=== PATIENT | female | born 1980 | race Hispanic/Latino ===

== ENCOUNTER → 2017-11-21 | Day surgery (SDC) | payer OTHER ==
[~2017-11-21] MED LIST: FENTANYL CITRATE/PF 100MCG/2 ML INJ ONE; HYOSCYAMINE SULFATE 0.5 MG/ML AMP ONE; LIDOCAINE HCL 2% LOCAL INJ 5 ML SDV VIAL INJ ONE; LINZESS PO; MIDAZOLAM HCL 2 MG/2 ML VIAL ONE; PANTOPRAZOLE SO40 MG PO; PROPOFOL IV EMULSION 10 MG/ML 50 ML VIAL ONE; SUCRALFATE1 GM PO; ZANTAC PO; [UNRECOGNIZED DRUG - OTHER]
[2017-11-21 10:35] LABS: BASOPHILS # (AUTO) 0.1 (0.0-0.1); BASOPHILS % 0.8 % (0.0-1.0); EOSINOPHILS # (AUTO) 0.2 (0.0-0.4); EOSINOPHILS % 2.3 % (0.0-6.0); HEMATOCRIT 36.6 % (34.2-44.1); HEMOGLOBIN 9.6 g/dL (12.0-16.0); LYMPHOCYTES % 25.7 % (18.0-39.1); MEAN CORPUSCULAR HEMOGLOBIN 18.3 pg (28-32); MEAN CORPUSCULAR HGB CONC 26.2 g/dL (31-35); MEAN CORPUSCULAR VOLUME 69.8 fL (81-99); MONOCYTES # (AUTO) 0.6 (0.2-0.8); MONOCYTES % 7.1 % (4.4-11.3); NEUTROPHILS % 63.8 % (38.7-80.0); PLATELET COUNT 512 x10e3/uL (140-360); RED BLOOD COUNT 5.24 x10e6/uL (3.6-5.1); RED CELL DISTRIBUTION WIDTH 24.1 % (11.7-14.4)
[2017-11-21 10:44] LABS: INR 1.16; PROTHROMBIN TIME 13.9 seconds (11.9-14.5)
[2017-11-21 10:45] LABS: PARTIAL THROMBOPLASTIN TIME 29.6 seconds (23.8-35.5)
[2017-11-21 14:47] LABS: % IRON SATURATION 4 % (15-50); IRON 24 ug/dL (50-170); TOTAL IRON BINDING CAPACITY 591 ug/dL (261-478); TRANSFERRIN 422 mg/dL (180-382)
--- NOTE | 2017-11-21 16:20 | Operative Report ---
DATE OF PROCEDURE: November 21, 2017 REFERRING PHYSICIAN: Dr. Werner Peoples. PROCEDURES PERFORMED 1. Esophagogastroduodenoscopy with biopsies and esophageal dilatation. 2. Colonoscopy with biopsies. INDICATIONS FOR EGD: Dysphagia, heartburn. INDICATIONS FOR COLONOSCOPY: Iron-deficiency anemia, history of bright red blood per rectum. MEDICATIONS: Patient was done under MAC, please see anesthesiologist's note. PROCEDURE: With the patient in left lateral decubitus position, flexible fiberoptic Olympus gastroscope was introduced into the esophagus under direct visualization without any difficulty. There was some patchy erythema noted in distal esophagus. A mild stricture was noted at the GE junction that was dilated to size 52-[place] Pandey. The scope was then advanced with ease into stomach and mucosa overlying the antrum and the body revealed some patchy erythema and low-grade to moderate edema and biopsies were obtained, sent to stain for H. pylori. The pylorus was of normal contour and shape, was intubated with ease, and the scope was advanced all the way to the second portion of the duodenum. The scope was then withdrawn slowly and biopsies were obtained from the proximal second portion to rule out sprue. The mucosa overlying the duodenal bulb appeared to be within normal limits. The scope was then withdrawn back into the stomach and retroflexed and mucosa overlying the fundus and the cardia appeared to be within normal limits. The scope was then straightened out. The stomach was decompressed. The scope was subsequently withdrawn. Patient tolerated the procedure well. IMPRESSION 1. Mild distal esophagitis. 2. Esophageal stricture at gastroesophageal junction, dilated to size 52-[place] Pandey. 3. Gastritis, biopsied, biopsies sent to stain for Helicobacter pylori. 4. Rule out sprue. PLAN: Follow up histology. Initiate Protonix 40 mg 1 p.o. q.a.m. a.c. Patient was then turned around. After adequate lubrication of the anal canal, a flexible fiberoptic Olympus colonoscope was inserted into the rectum with ease and advanced all the way to the cecum. The scope was then withdrawn slowly and mucosa overlying the cecum, ascending colon, and transverse colon appeared to be within normal limits. Mild patchy inflammatory changes were noted in the left colon. Biopsies were obtained. The scope was then retroflexed into the distal rectum and small internal hemorrhoids were noted, none of which was actively bleeding. The scope was then straightened out and was subsequently withdrawn. Patient tolerated the procedure well. IMPRESSION 1. Mild patchy left-sided colitis. 2. Internal hemorrhoids, none actively bleeding. PLAN: Follow up histology. Initiate high-fiber low-fat diet. Start VSL#3 one p.o. daily. Patient will need a small bowel series to complete workup. Job#: [id number] JIV cc:DR. WERNER PEOPLES
== END | disposition home or self-care (01) ==
LOC: OR 08:29
PROVIDERS: ATTEND Internal Medicine Gastroenterology
DX: K22.2 Esophageal obstruction (principal); K29.70 Gastritis, unspecified, without bleeding; K51.50 Left sided colitis without complications; K21.9 Gastro-esophageal reflux disease without esophagitis; K20.9 Esophagitis, unspecified; K44.9 Diaphragmatic hernia without obstruction or gangrene; K59.00 Constipation, unspecified; K64.8 Other hemorrhoids; D50.9 Iron deficiency anemia, unspecified; R03.0 Elevated blood-pressure reading, without diagnosis of hypertension; Z68.33 Body mass index [BMI] 33.0-33.9, adult; Z80.0 Family history of malignant neoplasm of digestive organs
CPT/HCPCS: 36415; 43239; 43450; 45380; 81025; 83540; 84466; 85025; 85045; 85610; 85730; J1980; J2001; J2250; 45378